=== PATIENT | male | born 1970 | race Caucasian/White ===

== ENCOUNTER 2019-02-03 08:03 | Emergency (ER) | payer OTHER ==
[~2019-02-03] VITALS: Ht 182.9 cm; Wt 119.0 kg
[2019-02-03 09:26] LABS: EOSINOPHILS % 0.9 % (0.0-5.0); LYMPHOCYTES % 24.8 % (20.0-50.0); MEAN CORPUSCULAR HEMOGLOBIN 16.5 pg (28.0-32.0); MEAN CORPUSCULAR VOLUME 58.3 fL (80.0-94.0); MEAN PLATELET VOLUME 8.3 fl (7.4-10.4); MONOCYTES % 7.3 % (2.0-8.0); PLATELET 369 x1000/uL (130-400); RED BLOOD CELL COUNT 3.94 mill/uL (4.7-6.1); RED CELL DISTRIBUTION WIDTH 19.9 % (11.6-14.6)
[2019-02-03 09:27] LABS: HEMOGLOBIN. 6.5 g/dL (14.0-18.0)
[2019-02-03 09:29] LABS: CHLORIDE 106 mEq/L (98-107)
[2019-02-03 10:03] LABS: PLATELET ESTIMATE NORMAL
[2019-02-03 12:30] VITALS: BP 144/75
== END 2019-02-03 13:30 | disposition short-term general hospital (02) ==
LOC: ER 08:03
DX: D64.9 Anemia, unspecified (principal); R55 Syncope and collapse; Z98.890 Other specified postprocedural states
CPT/HCPCS: 36415; 36430; 71045; 80053; 82962; 83880; 84484; 85025; 86850; 86900; 86901; 86920; 93005; 99291; Z7610; P9016